=== PATIENT | female | born 1945 | race Caucasian/White ===

== ENCOUNTER 2016-10-20 16:52 | Inpatient (IN) | payer MEDICARE, OTHER ==
[~2016-10-20] VITALS: Ht 152.4 cm; Wt 114.3 kg
--- NOTE | ~2016-10-20 | CATH ---
Cardiac Diagnostic Report Demographics Patient Name JORDAN Alvarenga Gender Female Date of 1945 Age 71 year(s) Patient Number [id number] Date of Study 10/24/2016 Visit Number [id number] Room Number 419 [employer] Ht 152.4 cm Wt 110.22 kg Accession Number [id number] BSA 2.03 m kg/m Referring Jose Stewart Primary Physician Physician Yaya RANGEL Performing Grady Higginbotham Secondary Physician Physician Kg RANGEL Diagnostic Grady Higginbotham Assisting Physician Physician Kg RANGEL Interventional Physician Heel Coverer Physician Findings and Conclusions Diagnostic Findings and Conclusion Non obstructive coronary artery disease. Diagnostic Recommendations Medical management and risk factor modification. Procedure Description The patient was brought to the diagnostic cardiac catheterization laboratory in the fasting, non-sedated state. Informed consent was obtained in the written and verbal form after the risks and benefits were explained. The patient had no further questions and agreed to proceed. The planned puncture-incision site(s) were clipped and prepped with ChloraPrep and draped in the usual sterile manner. Conscious sedation, supplemental oxygen, and pain control medications were delivered by a registered nurse under physician guidance. Surface ECG rhythm, blood pressure measurement, and pulse oximetry were monitored throughout the procedure. Oxygen was continued at 4liters/min via NC, continued from the nursing floor. Arterial access. The right radial access site was infiltrated with lidocaine. The 6F vessel was entered with the Seldinger technique. A sheath was advanced into the vessel and used for catheter placement. Left heart catheterization. A JR4 catheter was advanced across the aortic valve to the left ventricle under fluoroscopic guidance. Resting hemodynamics were obtained. Selective right coronary angiography. A JR4 catheter was advanced into the right coronary vessel ostium under fluoroscopic guidance. Contrast was injected by hand. Images were obtained in multiple projections. Selective left coronary angiography. An AL 1catheter was advanced into the left coronary vessel ostium under Fluoroscopic guidance. Contrast was injected by hand. Images were obtained in multiple projections. Hemostasis: The sheath was removed and a TR Band was placed. Hemostasis was achieved. The patient was transferred to a regular nursing floor via cart accompanied by a nurse. The patient left the laboratory in stable condition. Procedure Procedure Type Diagnostic procedure:Angiography:, Coronary Angios w/[facility] Indications: Chest pain and Non-ST elevation ME. The procedure was explained in detail to the patient. Risks, complications and alternative treatments were reviewed. Written consent was obtained. Medications Reviewed with Patient prior to Procedure. Complications: No Complication. Angiographic Findings Dominance: Right Cardiac Arteries and Lesion Findings LMCA: Normal (0% Stenosis). LAD: Normal (0% Stenosis).Minor luminal irregularities. LCx: Normal (0% Stenosis).Minor luminal irregularities. RCA: Abnormal. Lesion on Prox RCA: 40% stenosis . Lesion on Mid RCA: 50% stenosis . Coronary Tree Procedure Data Procedure Date Date: 10/24/2016Start: 09:39 AMEnd: 10:16 AM Entry Locations - Percutaneous access was performed through the Right Radial artery (Primary location). A 6 Fr sheath was inserted. Hemostasis was successfully obtained using a TR band. Procedure Medications Order and Administration + + +-------+--------+ !Time !Medication !Dosage !Route ! + + +-------+--------+ !10/24/2016 !Versed !1 mg !I.V. ! !09:25 AM ! ! ! ! + + +-------+--------+ !10/24/2016 !Fentanyl !50 mcg !I.V. ! !09:25 AM ! ! ! ! + + +-------+--------+ !10/24/2016 !Sodium Chloride !10 ml !I.V. ! !09:26 AM ! ! ! ! + + +-------+--------+ !10/24/2016 !Oxygen !6 l/min!NC ! !09:28 AM ! ! ! ! + + +-------+--------+ !10/24/2016 !Versed !1 mg !I.V. ! !09:38 AM ! ! ! ! + + +-------+--------+ !10/24/2016 !SF Radial Cocktail: 200mcg Nitro, 2.5 mg ! !I.A. ! !09:43 AM !Verapamil, 5000u Heparin ! ! ! + + +-------+--------+ Devices Used - A6 FrCATH 6F FR4 CATHETER 100CMwas used for:RightsideCoronary Angios. - A6 FrCATH 6FR FL3.5 CATHETER 100CMwas used for:LeftsideCoronary Angios.Unable to cannulate the vessel. - A6 Fr6F TIG CATHETERwas used for:LeftsideCoronary Angios.Unable to cannulate the vessel. - A6 FrCATH 6FR AL1 CATHETER 100CMwas used for:LeftsideCoronary Angios. Contrast Material - Isovue 11550 ml Fluoroscopy Time: Diagnostic: 8:18 minutes. Total: 8:18 minutes. Fluoroscopy Dose: Diagnostic: 892 mGy. Total: 892 mGy. Estimated Blood Loss: 8 ml. Medical History Allergies - ASA. - NSAIDS. - Codiene. - Iodine. - Other:(corticosteroids, prednisone, glimepiride, flu vaccine, simvastatin, atorvastatin, zetia). Risk Factors The patient risk factors include:peripheral arterial disease, obesity, treated hypercholesterolemia, treated hypertension, insulin-treated diabetes mellitus, chronic lung disease, last creatinine: 1.6 mg/dl, creatinine clearance: 56.93 ml/min, dyslipidemia and former tobacco use. Admission Data Admission Date: 10/20/2016 Admission Time: 06:06 PM Insurance Payors: Medicare. Clinical Evaluation Leading to Procedure Diagnosed on 10/23/2016 07:50 AM. - The patient's CAD presentation was assessed as: Non-STEMI. - The patient's anginal syndrome during the past two weeks was assessed as: Class IV according to the [place] Cardiovascular Society Classification System (CCS). Anti-anginal medications were prescribed during the past two weeks. The medications are: Beta Blockers and Ca channel Blockers. Hemodynamics Condition: Rest O2 Consumption: Estimated: 185.26Heart Rate: 68 bpm Pressures (mmHg) +-----+ + !Site !Pressure ! +-----+ + !LV !166/17 ,30 ! +-----+ + Shunts Oxygen Values O2 Capacity 125.12 O2 Consumption 185.26 Discharge Data Discharge Date: 10/25/2016 Hospital Status: Inpatient Signatures
--- NOTE | ~2016-10-20 | ECH ---
Transthoracic Echocardiography Report (TTE) Demographics Patient Name TAYE ORTEGA Date of Study 10/22/2016 Patient Number [id number] Visit Number [id number] Date of 1945 Room Number 419 Accession Number [id number] Gender Female Age 71 year(s) Referring David Chen MD Restaurant And Bar Manager Indy Guevara [facility] [[email or web address]] Physician Jose Javier MD Physician Interpreting David Chen MD Film Spooler Physician Supervising Ordering Physician David Chen MD, MD/P Nurse Stress Senior Network Security Engineer Conclusions Summary Technically fair exam. The estimated left ventricular ejection fraction is 65%. Moderate to severe left ventricular hypertrophy. Diastolic assessment reveals Grade I diastolic dysfunction. Mild mitral regurgitation by color Doppler. Aortic valve sclerotic with no hemodynamic significant stenosis. The ascending aorta appears mildly dilated. The maximum diameter measures 3.3 cm. Procedure Type of Study TTE procedure:Echo Complete SF. Procedure Date Date: 10/22/2016 Start: 08:26 AM Technical Quality: Fair due to body habitus. Indications:Chest pain. Appropriate Use Criteria: 9 Height: 60 inches Weight: 243 pounds BSA: 2.03 m Rhythm: Within normal limits HR: 66 bpm BP: 130/46 mmHg M-Mode/2D Measurements LV Diastolic Dimension: 3.51 cm LV Systolic Dimension: 1.97 cm LV Septum Diastolic: 1.59 cm LV PW Diastolic: 1.77 cm AO Root Dimension: 2.18 cm Cardiac Output: 6.28 l/min LA Dimension: 4.15 cm Cardiac Index: 3.09 l/min*m RV Diastolic Dimension: 3.5 cm LA volume index: 29 ml/m LVOT: 1.84 cm LVOT VTI: 35.83 cm RV Base: 3.9 cm LV Stroke volume: 95.23 ml RV Mid: 2.5 cm LV Stroke volume index: 46.91 ml/m Doppler Measurements AV Peak Velocity: 2.39 m/s MV Peak E-Wave: 1.25 m/s AV Peak Gradient: 22.85 mmHg MV Peak A-Wave: 1.32 m/s AV Mean Gradient: 12.26 mmHg MV E/A Ratio: 0.95 LVOT Peak Velocity: 1.51 m/s MV P1/2t: 86.1 msec AV Area (Continuity):1.74 cm MV Deceleration Time: 298.4 msec MV Area (PHT): 2.55 cm PV Peak Velocity: 1.36 m/s PV Peak Gradient: 7.39 mmHg RA Area: 13.39 cm Findings Left Ventricle The left ventricle is normal in size . Moderate to severe left ventricular hypertrophy. Diastolic assessment reveals Grade I diastolic dysfunction. Right Ventricle Normal right ventricle structure and function. Left Atrium Normal left atrial size. Right Atrium Normal right atrial size. Mitral Valve Normal mitral valve structure and function. Mild mitral regurgitation by color Doppler. Aortic Valve The aortic valve is mildly sclerotic with a mean gradient of 12mmHg. There is no aortic regurgitation by color Doppler. Tricuspid Valve Normal tricuspid valve structure and function. Trivial tricuspid regurgitation by color Doppler. Pulmonic Valve The pulmonic valve is not well visualized. Pericardial Effusion No evidence of pericardial effusion. Miscellaneous The ascending aorta appears mildly dilated. The maximum diameter measures 3.3 cm. Pleural Effusion No evidence of pleural effusion. Signature
--- NOTE | 2016-10-20 19:25 | ER ---
ADMIT: 10/20/2016 RM/LOC: 419 [facility] MR#: [id number] [address] [address] TAYE ORTEGA [address] [place] [address] Emergency Room Report SEX: F AGE: 71 : 1945 DATE: 10/20/2016 TIME: 1652 hours. PRIMARY CARE: Dr. Garcia. Please refer to my T-sheet for complete H and P. HISTORY OF PRESENT ILLNESS: Briefly, the patient is a 71-year-old, who started having left-sided chest pain. She has known history of COPD. She has had cardiac pain in the past. She has had an irregular heart beat. She also has diabetes and high blood pressure. She quit smoking 8 months ago. She also complains of a CVA in the past. This chest pain is left sided, 10/10 up to her left shoulder. PHYSICAL EXAMINATION: VITAL SIGNS: Her temperature is 95.7, respirations 22, sats 90% on room air, she uses O2 p.r.n., pulse 105, blood pressure 106/76. GENERAL: Slightly anxious. HEENT: Grossly normal. Slightly coarse left side. HEART: Regular. No murmur. ABDOMEN: Soft. SKIN: No rash. EXTREMITIES: 1+ edema. NEURO: She is alert, oriented, and nonfocal. EMERGENCY DEPARTMENT COURSE: Chest x-ray revealed a left-sided infiltrate. An EKG revealed sinus rhythm, rate 104. CBC was normal except for a hemoglobin of 10.7. Chemistries normal except potassium 3.3, BUN 29, glucose 225, creatinine 1.7. Troponin was negative. Blood cultures x2 were sent. After the x-ray was covered for the pneumonia pathway, we will admit for a rule out. Her pain has improved. She was down to just a trace of pain. ASSESSMENT: 1. Chest pain, atypical with negative enzymes at this time. 2. Left lower lobe infiltrate. We will do a sepsis protocol. PLAN: Admit to the hospital. Vasile Peres MD/ shari JOB #: [id number] CC: Pat Garcia MD, Attending Physician Pat Garcia MD, Family Physician
--- NOTE | 2016-10-21 13:42 | HP ---
ADMIT: 10/20/2016 RM/LOC: 419 [facility] MR#: [id number] [address] [address] TAYE ORTEGA [address] [place] [address] History and Physical SEX: F AGE: 71 : 1945 DATE OF SERVICE: CHIEF COMPLAINT: Chest pain. HISTORY OF PRESENT ILLNESS: The patient is a 71-year-old female, normally sees Dr. Garcia in clinic, who reported abrupt onset of chest pain at about 4:00 p.m. this evening. Substernal. Radiated down her left arm. Has not had anything similar. Was nonexertional. No associated shortness of breath or diaphoresis. No associated nausea. Otherwise reports recently she has been having some ongoing abdominal pain vaguely in the past. It has been going on for the last few months. Abdominal pain, bloating, and early satiety. Decreased oral intake from it, it sounds like. Otherwise is really relatively nonexertional. She does not recall any time she has had an ischemic evaluation of her heart. PAST MEDICAL HISTORY: 1. Type 2 diabetes, on oral agents. 2. COPD. 3. Depression. 4. Esophageal reflux. 5. Dyslipidemia. 6. Hypertension. 7. Osteoporosis. 8. Polyneuropathy. 9. Morbid obesity. 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 11.Allergic rhinitis. 12.Vitamin B12. 13.Asthma. MEDICATIONS: She is on: 1. Tylenol. 2. Albuterol. 3. Amlodipine. 4. Bumex. 5. Bupropion. 6. BuSpar. 7. Cetirizine. 8. Vitamin D. 9. Plavix. 10.Vitamin B12. 11.Atrovent nasal. 12.Combivent Respimat. 13.Lisinopril 40 mg b.i.d. 14.Lyrica. 15.Mag-Ox. 16.Metformin. 17.Toprol. 18.Protonix. ADMIT: 10/20/2016 RM/LOC: 419 [facility] MR#: [id number] [address] [address] TAYE ORTEGA [address] [place] [address] History and Physical SEX: F AGE: 71 : 1945 19.Crestor. ALLERGIES: NUMEROUS AND REVIEWED. PLEASE SEE CHART FOR FULL DETAILS. PAST SURGICAL HISTORY: She has had hysterectomy, C-sections, colonoscopies, bilateral knee replacements, appendectomy, cholecystectomy, lumpectomy of her breast. FAMILY HISTORY: Significant for coronary artery disease in a brother, sister, father. Diabetes in her father, hypertension in her father. Mother of heart failure in old age, she states. Colon cancer in her son and he had heart disease at age 38, she reports. SOCIAL HISTORY: Tobacco use, she smoked up until 7 months ago, she states. Distant use of illicit substances and drugs, she states. She is recovering alcoholic. Maintains sobriety currently. REVIEW OF SYSTEMS: As per HPI. Otherwise, completely reviewed and negative. PHYSICAL EXAMINATION: VITAL SIGNS: Blood pressure 168/55, pulse 103, respiratory rate 24, O2 saturation 98%. She is on 4 L nasal cannula. She uses oxygen at bedtime normally. GENERAL: She is alert and oriented x3. Very conversational. Accompanied by at bedside. HEENT: Normocephalic, atraumatic. Pupils are equal bilaterally. No icterus. Dry mucous membranes. Poor dentition. NECK: No lymphadenopathy. Trachea midline. LUNGS: Clear to auscultation bilaterally. Symmetric thoracic excursion. No rhonchi noted. HEART: Regular rate and rhythm. No murmurs, rubs, or gallops. PMI at 5th intercostal space, distant. ABDOMEN: Soft, nontender, and nondistended. Bowel sounds present. EXTREMITIES: No cyanosis or clubbing. She has trace edema present bilaterally. MUSCULOSKELETAL: 5/5 strength in all 4 extremities. NEUROLOGICAL: No focal deficits noted. Cranial nerves II through XII are grossly intact. SKIN: She has no rashes noted. Dry skin. PSYCHIATRIC: She has normal affect. Interacts well with family member. LABORATORY AND X-RAY DATA: Sodium 145, potassium 3.3, creatinine 1.7 with a baseline of 1. AST and ALT within normal limits. Troponin is 0.019 and normal. INR is normal. Her EKG is reviewed. She has a right bundle-branch block, otherwise sinus rhythm and no acute findings. Hemoglobin is 10.3, white count 8.4. Chest x-ray, I reviewed. I do not see really necessarily an acute finding of an infiltrate. She has a little bit of scarring in her left base. Old CT images were reviewed. It looks like she had a little bit of scarring down there as well from past imaging done in the last year. ADMIT: 10/20/2016 RM/LOC: 419 [facility] MR#: [id number] [address] [address] TAYE ORTEGA [address] [place] [address] History and Physical SEX: F AGE: 71 : 1945 ASSESSMENT: 1. Chest pain. 2. Diabetes type 2. 3. Abdominal pain. 4. Chronic obstructive pulmonary disease. 5. Acute kidney injury. 6. Morbid obesity. 7. Hypertension. 8. Hyperlipidemia. PLAN: At this point in time, we will rule out an acute cardiac event with serial troponins as well as EKG in the morning. We will get a CT scan of her chest, abdomen, and pelvis given her bloating and overall decreased oral intake and constitutional symptoms she has been experiencing lately. There is this questionable pneumonia on this x-ray. She got a dose of antibiotics from the ER. I do not necessarily agree that she has a pneumonia at this time. We will repeat evaluation with a CT scan. No continuation of antibiotics at this time. She does have acute kidney injury. I think she is over-diuresed at this time. We will give her some IV fluids back. Dougie An MD/ shari JOB #: [id number] CC: Pat Garcia MD, Attending Physician Pat Garcia MD, Family Physician
--- NOTE | 2016-10-26 08:39 | DS ---
ADMIT: 10/20/2016 RM/LOC: 419 [facility] MR#: [id number] [address] [address] TAYE ORTEGA [address] [place] [address] Discharge Summary SEX: F AGE: 71 : 1945 ADMISSION DATE: 10/20/2016 DISCHARGE DATE: 10/25/2016 CONSULTATIONS: Cardiology. PROCEDURES: She underwent a left heart catheterization on the 24 of October. Findings were of nonobstructive coronary disease. FINAL DIAGNOSES: 1. Non ST-elevation RI (myocardial infarction). 2. Diabetes. 3. Mild COPD (chronic obstructive pulmonary disease) exacerbation. 4. Hypertension. 5. Morbid obesity. 6. Nonobstructive coronary artery disease. 7. Acute kidney injury. REASON FOR ADMISSION: The patient is a pleasant 71-year-old female, who presented to the emergency room with chest pain. Admitted for further stabilization. HOSPITAL COURSE: The patient was admitted. Her troponin trended upward initially during hospitalization. She had resolution of her pain spontaneously. Troponin peaked only at 1.45. Was seen in consultation by Cardiology. Ultimately underwent the above-mentioned left heart catheterization with nonobstructive disease and no other intervention. Plan for medical management. The patient otherwise tolerated it well. Her creatinine did bump to 1.6 during hospitalization. Baseline is less than 1. Remained high. She was maintained off her OLYA inhibitor and diuretic during hospitalization and will need close followup as an outpatient regarding that. We will start back her OLYA inhibitor for blood pressure control, but will need a BMP at followup. She will follow up with Dr. Garcia, her primary care provider, in 7-10 days. Have a BMP at that time. Follow up Cardiology per their plan. Dougie An MD/ davida JOB #: [id number] CC: Pat Garcia MD, Attending Physician Pat Garcia MD, Family Physician
[2016-10-26] MEDS ORDERED: TOPROL XL100 MG PO (18:06)
[2016-10-26] MEDS ORDERED: TYLENOL DPS325 MG PO (18:06)
[2016-10-26] MEDS ORDERED: PROVENTIL HFA6.7 GM IH (18:07)
[2016-10-26] MEDS ORDERED: NORVASC5 MG PO (18:07)
[2016-10-26] MEDS ORDERED: PROVENTIL2.5 MG/3 M IH (18:07)
[2016-10-26] MEDS ORDERED: BUSPAR DPS10 MG PO (18:08)
[2016-10-26] MEDS ORDERED: ALL DAY ALL1 MG/1 ML PO (18:08)
[2016-10-26] MEDS ORDERED: BUPROPION HCL200 MG PO (18:08)
[2016-10-26] MEDS ORDERED: CHROMIUM PICO200 MCG PO (18:09)
[2016-10-26] MEDS ORDERED: TEMOVATE O.05%15 GM TP (18:09)
[2016-10-26] MEDS ORDERED: VITAMIN D10000 UNIT PO (18:09)
[2016-10-26] MEDS ORDERED: VITAMIN B-12500 MCG PO (18:10)
[2016-10-26] MEDS ORDERED: CLOPIDOGREL75 MG PO (18:10)
[2016-10-26] MEDS ORDERED: EPIPEN 2-P0.3 MG/0.3 SQ (18:10)
[2016-10-26] MEDS ORDERED: HAWTHORN BERRI565 MG PO (18:11)
[2016-10-26] MEDS ORDERED: HYTONE 1% DPS30 GM TP (18:11)
[2016-10-26] MEDS ORDERED: [UNRECOGNIZED DRUG - OTHER] TP (18:12)
[2016-10-26] MEDS ORDERED: ATROVENT NASAL15 ML NS (18:13)
[2016-10-26] MEDS ORDERED: DUONEB DPS3 ML IH (18:13)
[2016-10-26] MEDS ORDERED: LINZESS290 MCG PO (18:13)
[2016-10-26] MEDS ORDERED: LYRICA25 MG PO (18:14)
[2016-10-26] MEDS ORDERED: GLUCOPHAGE1000 MG PO (18:14)
[2016-10-26] MEDS ORDERED: MAG-OX400 MG PO (18:14)
[2016-10-26] MEDS ORDERED: ZESTRIL DPS40 MG PO (18:14)
[2016-10-26] MEDS ORDERED: PROTONIX40 MG PO (18:14)
[2016-10-26] MEDS ORDERED: CRESTOR20 MG PO (18:15)
[2016-10-26] MEDS ORDERED: MUCUS RELIEF C PO (18:15)
[2016-10-26] MEDS ORDERED: SILVADENE DPS50 GM TP (18:16)
[2016-10-26] MEDS ORDERED: VIBRAMYCIN-DPS100 M2 PO (18:16)
[2016-10-26] MEDS ORDERED: SPIRIVA18 MCG IH (18:16)
--- NOTE | 2016-11-16 10:36 | CO ---
ADMIT: 10/20/2016 RM/LOC: 419 [facility] MR#: [id number] [address] [address] TAYE ORTEGA [address] [place] [address] Consultation SEX: F AGE: 71 : 1945 DATE OF CONSULTATION: 10/21/2016 ATTENDING PHYSICIAN: Pat Garcia MD CONSULTING PHYSICIAN: Duarte Hernandez MD HISTORY OF PRESENT ILLNESS: The patient presents today with an episode of chest pain while she was in [place] yesterday, occurred about 04:00 in the afternoon while she was getting ready to eat. Midsternal radiating down her left arm. She says she has had nothing like this before. No diaphoresis or shortness of breath. She was not nauseated. It lasted until she came to the ER and recurred with the pain medications that they gave her there, it was not nitroglycerin she states. PAST MEDICAL HISTORY: Includes: 1. Hypertension. 2. History of carotid disease. 3. Bilateral 60% to 70% stenoses on Duplex, June 2016. 4. Diabetes. 5. History of appendectomy and cholecystectomy. 6. History of bilateral knee replacements. 7. Asthma. 8. History of breast and cervical cancer. 9. COPD. 10.Depression. 11.GERD. MEDICATIONS: Include: 1. BuSpar 10. 2. Crestor 10. 3. Lopressor 200 mg b.i.d. 4. Lyrica 25 mg b.i.d. 5. Plavix 75 mg a day. 6. Protonix 40 mg a day. 7. Tylenol as directed. 8. Vitamin B12. 9. Wellbutrin 200 mg a day. 10.NovoLog as directed. 11.Heparin drip. 12.Normal saline. ALLERGIES: INCLUDE: 1. CORTICOSTEROIDS. 2. NSAIDS. 3. IODINE. 4. PREDNISONE. 5. GLIMEPIRIDE. 6. FLU VACCINE. 7. SIMVASTATIN. ADMIT: 10/20/2016 RM/LOC: 419 [facility] MR#: [id number] [address] [address] TAYE ORTEGA [address] [place] [address] Consultation SEX: F AGE: 71 : 1945 8. ATORVASTATIN. 9. ZETIA. 10.CODEINE. 11.ASPIRIN. FAMILY HISTORY: Reviewed. Two brothers with coronary artery disease. Father with coronary artery disease. Father with tuberculosis and hypertension as well. Mother with diabetes, hypertension, and CHF. Two sisters with coronary artery disease and also colon cancer. SOCIAL HISTORY: She is a former smoker. She is currently with one son. Nondrinker. REVIEW OF SYSTEMS: A full 12-point review of systems was obtained and deemed to be negative except for the pertinently dictated positives in the HPI. PHYSICAL EXAMINATION: VITAL SIGNS: Today, blood pressure is 178/60, with a pulse rate of 72, temp 97.5. Her weight is 243 pounds. GENERAL: She is a pleasant, well-nourished, well-developed white female, no acute distress. She is alert and oriented x3. NECK: Shows brisk carotid upstrokes. No JVD or bruit. CHEST: Clear. HEART: Regular. ABDOMEN: Soft. EXTREMITIES: No cyanosis, clubbing, edema. MUSCULOSKELETAL: Normal. NEUROLOGIC: Normal. SKIN: [place], warm, and dry. LABORATORY AND X-RAY DATA: Laboratory and ancillary data shows a creatinine of 1.4, it was 1.7 on admission; potassium is 3.7; magnesium is 1.2. CK normal at 54 with an MB of 1. Her troponin went from 0.19 to 1.45. White blood cell count 8.4 with a hemoglobin of 10.3, and a platelet count of 294,000. EKG shows no acute cardiopulmonary abnormalities. CT of the chest noncontrast, shows ground-glass opacities, but no underlying infection or pneumonia. ASSESSMENT AND PLAN: 1. Non-ST segment elevation myocardial infarction. 2. History of cerebrovascular accident. ADMIT: 10/20/2016 RM/LOC: 419 [facility] MR#: [id number] [address] [address] TAYE ORTEGA [address] [place] [address] Consultation SEX: F AGE: 71 : 1945 3. Diabetes. 4. Acute renal insufficiency. 5. Chronic obstructive pulmonary disease. 6. Hypertension. Based on her history and elevated troponin, it certainly sounds like she is experiencing a non ST-elevation myocardial infarction, and I agree with the heparin. Both history of cerebrovascular accident and recent acute kidney injury, may need to defer the timing of the cardiac cath. Continue with heparin drip and Plavix. No aspirin secondary to allergy. Continue statin and Lopressor. Final recommendations pending the echocardiogram as well. Thank you for this consultation. Duarte Hernandez MD/ shari JOB #: [id number] CC: Pat Garcia MD, Attending Physician Pat Garcia MD, Family Physician
[2017-04-15] MEDS ORDERED: NORVASC5 MG PO (18:59)
[2017-04-15] MEDS ORDERED: PROVENTIL2.5 MG/3 M PO (18:59)
[2017-04-15] MEDS ORDERED: TYLENOL DPS325 MG PO ×2 (18:59→19:06)
[2017-04-15] MEDS ORDERED: BUSPAR DPS10 MG PO (19:00)
[2017-04-15] MEDS ORDERED: BUMETANIDE2 MG PO (19:00)
[2017-04-15] MEDS ORDERED: WELLBUTRIN SR100 MG PO (19:00)
[2017-04-15] MEDS ORDERED: ALL DAY ALL1 MG/1 ML PO (19:01)
[2017-04-15] MEDS ORDERED: TEMOVATE O.05%15 GM TP (19:01)
[2017-04-15] MEDS ORDERED: VITAMIN D35000 UNI1 PO (19:01)
[2017-04-15] MEDS ORDERED: [UNRECOGNIZED DRUG - OTHER] PO (19:01)
[2017-04-15] MEDS ORDERED: VITAMIN B-122000 MCG PO (19:02)
[2017-04-15] MEDS ORDERED: HYTONE 1% DPS30 GM TP (19:03)
[2017-04-15] MEDS ORDERED: EPIPEN 2-P0.3 MG/0.3 IM (19:03)
[2017-04-15] MEDS ORDERED: LINZESS145 MCG PO (19:03)
[2017-04-15] MEDS ORDERED: MAG-OX400 MG PO (19:04)
[2017-04-15] MEDS ORDERED: TOPROL XL100 MG PO (19:04)
[2017-04-15] MEDS ORDERED: PROTONIX40 MG PO (19:04)
[2017-04-15] MEDS ORDERED: LYRICA25 MG PO (19:04)
[2017-04-15] MEDS ORDERED: ZESTRIL DPS40 MG PO (19:04)
[2017-04-15] MEDS ORDERED: SILVADENE DPS50 GM TP (19:05)
[2017-04-15] MEDS ORDERED: SPIRIVA18 MCG IH (19:05)
[2017-04-15] MEDS ORDERED: RANEXA500 MG PO (19:05)
[2017-04-15] MEDS ORDERED: CRESTOR20 MG PO (19:05)
[2017-04-15] MEDS ORDERED: BACTROBAN OINT.22 GM TP (19:06)
== END 2016-10-25 14:15 | disposition home or self-care (01) | DRG 280 ==
LOC: ER 16:52 → 4PCU 18:06
PROVIDERS: ADMIT Internal Medicine
PROC: 4A023N7 Measurement of Cardiac Sampling and Pressure, Left Heart, Percutaneous Approach (ICD-10-PCS; principal; 2016-10-24)
PROC: B2111ZZ Fluoroscopy of Multiple Coronary Arteries using Low Osmolar Contrast (ICD-10-PCS; principal; 2016-10-24)
DX: I21.4 Non-ST elevation (NSTEMI) myocardial infarction (principal); J96.20 Acute and chronic respiratory failure, unspecified whether with hypoxia or hypercapnia; N17.9 Acute kidney failure, unspecified; J44.1 Chronic obstructive pulmonary disease with (acute) exacerbation; Z68.42 Body mass index [BMI] 45.0-49.9, adult; I65.23 Occlusion and stenosis of bilateral carotid arteries; E66.01 Morbid (severe) obesity due to excess calories; F32.9 Major depressive disorder, single episode, unspecified; K21.9 Gastro-esophageal reflux disease without esophagitis; F10.21 Alcohol dependence, in remission; E11.22 Type 2 diabetes mellitus with diabetic chronic kidney disease; I12.9 Hypertensive chronic kidney disease with stage 1 through stage 4 chronic kidney disease, or unspecified chronic kidney disease; M81.0 Age-related osteoporosis without current pathological fracture; J30.9 Allergic rhinitis, unspecified; I25.10 Atherosclerotic heart disease of native coronary artery without angina pectoris; N18.3 Chronic kidney disease, stage 3 (moderate); I73.9 Peripheral vascular disease, unspecified; J45.909 Unspecified asthma, uncomplicated; Z96.653 Presence of artificial knee joint, bilateral; Z82.49 Family history of ischemic heart disease and other diseases of the circulatory system; Z79.84 Long term (current) use of oral hypoglycemic drugs; Z86.73 Personal history of transient ischemic attack (TIA), and cerebral infarction without residual deficits; Z87.891 Personal history of nicotine dependence; Z85.3 Personal history of malignant neoplasm of breast; Z85.41 Personal history of malignant neoplasm of cervix uteri; Z79.02 Long term (current) use of antithrombotics/antiplatelets

== ENCOUNTER → 2017-04-30 | Outpatient (CLI) | payer MEDICARE, OTHER ==
[~2017-04-30] MED LIST: ALL DAY ALL1 MG/1 ML PO; ATROVENT NASAL15 ML NS; BACTROBAN OINT.22 GM TP; BUMETANIDE2 MG PO; BUPROPION HCL200 MG PO; BUSPAR DPS10 MG PO; CHROMIUM PICO200 MCG PO; CLOPIDOGREL75 MG PO; CRESTOR20 MG PO; DUONEB DPS3 ML IH; EPIPEN 2-P0.3 MG/0.3 IM; EPIPEN 2-P0.3 MG/0.3 SQ; GLUCOPHAGE1000 MG PO; HAWTHORN BERRI565 MG PO; HYTONE 1% DPS30 GM TP; LINZESS145 MCG PO; LINZESS290 MCG PO; LYRICA25 MG PO; MAG-OX400 MG PO; MUCUS RELIEF C PO; NORVASC5 MG PO; PROTONIX40 MG PO; PROVENTIL HFA6.7 GM IH; PROVENTIL2.5 MG/3 M IH; PROVENTIL2.5 MG/3 M PO; RANEXA500 MG PO; SILVADENE DPS50 GM TP; SPIRIVA18 MCG IH; TEMOVATE O.05%15 GM TP; TOPROL XL100 MG PO; TYLENOL DPS325 MG PO; VIBRAMYCIN-DPS100 M2 PO; VITAMIN B-122000 MCG PO; VITAMIN B-12500 MCG PO; VITAMIN D10000 UNIT PO; VITAMIN D35000 UNI1 PO; WELLBUTRIN SR100 MG PO; ZESTRIL DPS40 MG PO; [UNRECOGNIZED DRUG - OTHER] PO; [UNRECOGNIZED DRUG - OTHER] TP
== END | disposition home or self-care (01) ==
LOC: RAD.S 11:30
DX: R51 Headache (principal)